=== PATIENT | female | born 1990 | race African-American/Black ===

== ENCOUNTER 2021-02-09 06:01 | Emergency (ER) | payer OTHER ==
[~2021-02-09] VITALS: Ht 170.2 cm; Wt 66.3 kg
[2021-02-09 06:03] VITALS: BP 133/80
[2021-02-09] MEDS ORDERED: ASPIRIN CHEWABLE 81 MG TABLET. PO ONE (06:45)
--- NOTE | 2021-02-09 07:35 | ED.ADGEN ---
Past Medical History Additional Past Medical Histor: HEART MURMUR Past Surgical History: No Surgical History Smoking Status: Current Every Day Smoker Alcohol Use: Occasionally General Adult EDM: Chief Complaint: CHEST PAIN HPI: HPI: Patient is a 30 year old female coming in via EMS for left-sided chest pain. Patient states to me that it woke her from sleep, but told the nurse she was arguing with her boyfriend when the chest pain started. Denies any cough. Denies any medical history other than anxiety and depression. States she otherwise has been well but has not gotten her Covid vaccines because of "is against my muslim". Patient states family history of heart problems or mom though she is unsure what they are. Review of Systems: Review of Systems: All other systems within normal limits except for as noted in the HPI Current Medications: Current Medications Medications (Trade) Dose Ordered Sig/Jose J Start Time Stop Time Status Last Admin Dose Admin Aspirin (Aspirin Chewable) 324 mg 1X ONCE 02/09/21 06:45 02/09/21 06:46 DC Allergies: Allergies: Allergies Uncoded Allergies Type Severity Reaction Last Updated Verified A DEPRESSION MEDICATION BUT NOT SURE WHICH ONE Allergy Unknown 02/09/21 Physical Exam: PE: Constitutional: Well developed, well nourished, no acute distress, non-toxic appearance. [] HENT: Normocephalic, atraumatic, bilateral external ears normal, nose normal. [] Eyes: PERRLA, conjunctiva normal, no discharge. [] Neck: No rigidity, supple, no stridor. [] Cardiovascular: Regular rate and rhythm, brisk cap refill [] Lungs & Thorax: Non labored symmetric respirations, no tachypnea or respiratory distress [] Abdomen: Soft, nondistended. Skin: Warm, dry, no erythema, no rash. [] Back: Unremarkable Extremities: No deformities, range of motion grossly intact, no lower extremity edema [] Neurologic: Alert and oriented X 3, no focal deficits noted. [] Psychologic: Affect normal, judgement normal, mood normal. [] Current Patient Data: Vital Signs: Vital Signs Date Time Temp Pulse Resp B/P (MAP) Pulse Ox O2 Delivery O2 Flow Rate FiO2 02/09/21 06:03 98.4 87 25 133/80 99 Room Air 98.4 EKG: EKG: Sinus rhythm, heart rate 88 bpm, normal axis, no ST elevation or depression, no ectopy. [] Heart Score: C/O Chest Pain: N/A Risk Factors: Risk Factors: DM, Current or recent (<one month) smoker, HTN, HLP, family history of CAD, obesity. Risk Scores: Score 0 - 3: 2.5% MACE over next 6 weeks - Discharge Home Score 4 - 6: 20.3% MACE over next 6 weeks - Admit for Clinical Observation Score 7 - 10: 72.7% MACE over next 6 weeks - Early Invasive Strategies Radiology/Procedures: Radiology/Procedures: [] Course & Med Decision Making: Course & Med Decision Making Patient uncooperative and yelling at staff and the try to enter room. Patient yelled at me several times and refusing work-up but saying that she "wants to just lay her and think about for a while", and talk to her mother. Refusing all interventions. Discussed that if she is in the ER in 1 part of her chest pain we will do so, patient decided to leave TAMMIE Romo Disclaimer: Demetrius Disclaimer: This electronic medical record was generated, in whole or in part, using a voice recognition dictation system. Departure Departure Impression: Primary Impression: Chest pain Disposition: LEFT AGAINST MEDICAL ADVICE Condition: STABLE Referrals: NO PCP (PCP) SUPRIYA WALLER MD Feb 09, 2021 07:35
--- NOTE | 2021-02-09 15:53 | EKG ---
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
== END 2021-02-09 07:20 | disposition left against medical advice (07) ==
LOC: ER 06:01
DX: R07.89 Other chest pain (principal); F17.200 Nicotine dependence, unspecified, uncomplicated; F41.9 Anxiety disorder, unspecified; F32.9 Major depressive disorder, single episode, unspecified; Z88.8 Allergy status to other drugs, medicaments and biological substances
CPT/HCPCS: 93005; 99283